=== PATIENT | female | born 1960 | race Caucasian/White ===

== ENCOUNTER 2016-08-12 06:17 | Emergency (ER) | payer BC ==
--- NOTE | 2016-08-12 08:23 | EDM.PDOC ---
ED HPI GENERAL MEDICAL PROBLEM - General Chief Complaint: Flank Pain Stated Complaint: PAIN ON RIGHT SIDE Time Seen by Provider: 08/12/16 08:02 - History of Present Illness INITIAL COMMENTS - FREE TEXT/NARRATIVE: HISTORY AND PHYSICAL: History of present illness: Patient is a 56-year-old white female history of chronic renal disease who presents with concern of bilateral flank pain right greater than left patient denies associated nausea vomiting fever chills or other concern she had no urinary symptoms in the form of dysuria frequency hesitancy or other she denies trauma Review of systems: As per history of present illness and below otherwise all systems reviewed and negative. Past medical history: As per history of present illness and as reviewed below otherwise noncontributory. Surgical history: As per history of present illness and as reviewed below otherwise noncontributory. Social history: No reported history of drug or alcohol abuse. Family history: As per history of present illness and as reviewed below otherwise noncontributory. Physical exam: HEENT: Atraumatic, normocephalic, pupils reactive, negative for conjunctival pallor or scleral icterus, mucous membranes moist, throat clear, neck supple, nontender, trachea midline. Lungs: Clear to auscultation, breath sounds equal bilaterally, chest nontender. Heart: S1S2, regular, negative for clicks, rubs, or JVD. Abdomen: Soft, nondistended, nontender. Negative for masses or hepatosplenomegaly. Right-sided costovertebral tenderness. Pelvis: Stable nontender. Genitourinary: Deferred. Rectal: Deferred. Extremities: Atraumatic, negative for cords or calf pain. Neurovascular unremarkable. Neuro: Awake, alert, oriented. Cranial nerves II through XII unremarkable. Cerebellum unremarkable. Motor and sensory unremarkable throughout. Exam nonfocal. Diagnostics: CBC CMP UA CT abdomen and pelvis chest x-ray right upper quadrant Therapeutics: Normal saline Toradol 30 mg IV Zofran 4 mg IV Impression: #1 flank pain #2 history of chronic renal disease Definitive disposition and diagnosis as appropriate pending reevaluation and review of above. flank area Pain Score (Numeric/FACES): 3 - Related Data Allergies Allergy/AdvReac Type Severity Reaction Status Date / Time iodine Allergy unknown Verified 08/12/16 06:56 morphine Allergy Redness Verified 08/12/16 06:56 nitrofurantoin Allergy unknown Verified 08/12/16 06:56 [From Macrobid] Home Meds: Home Meds Amoxicillin/Potassium Clav [Amox-Clav 875-125 mg Tablet] 1 tab PO BID 08/12/16 [ History] Cholecalciferol (Vitamin D3) [D3-2000] 1,000 units PO DAILY 08/12/16 [History] Folic Acid 800 mcg PO DAILY 08/12/16 [History] Lisinopril 1 tab PO DAILY 08/12/16 [History] Sodium Bicarbonate 1 tab PO BID 08/12/16 [History] amLODIPine [Norvasc] 2.5 mg PO DAILY 08/12/16 [History] Past Medical History HEENT History: Reports: Other (See Below) 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 , Other (See Below) Other OB/BYN History: right ovary removal Musculoskeletal History: Reports: None Neurological History: Reports: None Psychiatric History: Reports: None Endocrine/Metabolic History: Reports: None Hematologic History: Reports: None Immunologic History: Reports: None Oncologic (Cancer) History: Reports: None Dermatologic History: Reports: None - Infectious Disease History Infectious Disease History: Reports: None - Past Surgical History HEENT Surgical History: Reports: Eye Surgery, Other (See Below) GI Surgical History: Reports: None Female Surgical History: Reports: Ureteral Stent Other Female Surgeries/Procedures: bilateral ureteral implantation Social & Family History - Family History Family Medical History: Noncontributory - Tobacco Use Smoking Status *Q: Never Smoker - Caffeine Use Caffeine Use: Reports: Coffee - Recreational Drug Use Recreational Drug Use: No ED ROS GENERAL - Review of Systems Review Of Systems: ROS reveals no pertinent complaints other than HPI. ED EXAM, GENERAL - Physical Exam Exam: See Below (See dictation) Course - Vital Signs Last Recorded V/S: Last Vital Signs Temp 36.5 C 08/12/16 07:01 Pulse 87 08/12/16 10:01 Resp 18 08/12/16 10:01 BP 168/79 H 08/12/16 10:01 Pulse Ox 96 06/03/17 10:01 - Orders/Labs/Meds Orders: Active Orders 24 hr Category Date Time Status Abdomen Ltd [US] Stat Exams 08/12/16 08:08 Taken Abdomen Pelvis wo Cont [CT] Stat Exams 08/12/16 06:39 Taken Chest 2V [CR] Stat Exams 08/12/16 08:08 Taken CULTURE URINE [RM] Stat Lab 08/12/16 06:30 Received Labs: Laboratory Tests 08/12/16 08/12/16 08/12/16 Range/Units 06:30 06:40 06:40 WBC 11.85 H (4.0-11.0) K/uL RBC 4.41 (4.30-5.90) M/uL Hgb 12.5 (12.0-16.0) g/dL Hct 39.5 (36.0-46.0) % MCV 89.6 (80.0-98.0) fL MCH 28.3 (27.0-32.0) pg MCHC 31.6 (31.0-37.0) g/dL RDW Std Deviation 43.3 (28.0-62.0) fl RDW Coeff of Maite 13 (11.0-15.0) % Plt Count 239 (150-400) K/uL MPV 10.10 (7.40-12.00) fL Add Manual Diff YES Neutrophils % (Manual) 67 (48.0-80.0) % Band Neutrophils % 7 % Lymphocytes % (Manual) 18 (16.0-40.0) % Monocytes % (Manual) 4 (0.0-15.0) % Eosinophils % (Manual) 3 (0.0-7.0) % Basophils % (Manual) 1 (0.0-1.5) % Nucleated RBC % 0.0 /100WBC Absolute Seg Neuts 7.9 Band Neutrophils # 0.8 Lymphocytes # (Manual) 2.1 Monocytes # (Manual) 0.5 Eosinophils # (Manual) 0.4 Basophils # (Manual) 0 Nucleated RBCs # 0 K/uL Sodium 142 (136-146) mmol/L Potassium 4.8 (3.5-5.1) mmol/L Chloride 111 H (98-110) mmol/L Carbon Dioxide 20 L (21-31) mmol/L BUN 27 H (6.0-23.0) mg/dL Creatinine 1.9 H (0.6-1.5) mg/dL Est Cr Clr Drug Dosing 29.40 mL/min Estimated GFR (MDRD) 27.2 ml/min Glucose 104 (60-110) mg/dL Calcium 9.1 (8.8-10.8) mg/dL Total Bilirubin 0.3 (0.1-1.5) mg/dL AST 38 (5-40) IU/L ALT 151 H (8-54) IU/L Alkaline Phosphatase 264 H (40-150) Total Protein 7.7 (6.0-8.0) g/dL Albumin 3.9 (3.5-5.0) g/dL Globulin 3.8 H (2.0-3.5) g/dL Albumin/Globulin Ratio 1.0 L (1.3-2.8) Urine Color YELLOW Urine Appearance CLEAR Urine pH 5.5 (5.0-8.0) Ur Specific [place] 1.010 (1.001-1.035) Urine Protein 100 (NEGATIVE) mg/dL Urine Glucose (UA) NEGATIVE (NEGATIVE) mg/dL Urine Ketones NEGATIVE (NEGATIVE) mg/dL Urine Occult Blood NEGATIVE (NEGATIVE) Urine Nitrite NEGATIVE (NEGATIVE) Urine Bilirubin NEGATIVE (NEGATIVE) Urine Urobilinogen 0.2 (<2.0) EU/dL Ur Leukocyte Esterase NEGATIVE (NEGATIVE) Urine RBC 0-2 (0-2/HPF) Urine WBC 0-1 (0-5/HPF) Ur Epithelial Cells OCCASIONAL (NONE-FEW) Urine Bacteria RARE (NEGATIVE) Departure - Departure Time of Disposition: 11:00 Disposition: Home, Self-Care 01 Condition: good Clinical Impression: Flank pain - Discharge Information Forms: ED Department Discharge Additional Instructions: The following information is given to patients seen in the emergency department who are being discharged to home. This information is to outline your options for follow-up care. We provide all patients seen in our emergency department with a follow-up referral. The need for follow-up, as well as the timing and circumstances, are variable depending upon the specifics of your emergency department visit. If you don't have a primary care physician on staff, we will provide you with a referral. We always advise you to contact your personal physician following an emergency department visit to inform them of the circumstance of the visit and for follow-up with them and/or the need for any referrals to a consulting specialist. The emergency department will also refer you to a specialist when appropriate. This referral assures that you have the opportunity for followup care with a specialist. All of these measure are taken in an effort to provide you with optimal care, which includes your followup. Under all circumstances we always encourage you to contact your private physician who remains a resource for coordinating your care. When calling for followup care, please make the office aware that this follow-up is from your recent emergency room visit. If for any reason you are refused follow-up, please contact the [facility] emergency department at and asked to speak to the emergency department charge nurse. Followup primary medical doctor/urology as discussed Tylenol as directed return as needed as discussed - My Orders Last 24 Hours: My Active Orders 08/12/16 06:30 CULTURE URINE [RM] Stat 08/12/16 06:39 Abdomen Pelvis wo Cont [CT] Stat 08/12/16 08:08 Abdomen Ltd [US] Stat Chest 2V [CR] Stat - Assessment/Plan Last 24 Hours: My Active Orders 08/12/16 06:30 CULTURE URINE [RM] Stat 08/12/16 06:39 Abdomen Pelvis wo Cont [CT] Stat 08/12/16 08:08 Abdomen Ltd [US] Stat Chest 2V [CR] Stat
[2016-08-12 18:20] VITALS: BP 161/85
--- NOTE | 2016-08-14 13:29 | CT ---
EXAM DATE: 08/12/16 PATIENT'S AGE: 56 Patient: MELISSA GUTIERREZ Facility: [place], [place] Site . Site : 1960 Study: CT Abdomen/Pelvis WO CONT [id number]/3/2017 7:04:03 AM Ordering Physician: Doctor Regan Final Report: INDICATION: Right-sided flank pain. TECHNIQUE: CT abdomen and pelvis without contrast. COMPARISON: None FINDINGS: Lower chest: Reticulonodular opacities and subtle architectural distortion right middle lobe. Trace dependent pleural effusion on the right. Liver: Unremarkable. Spleen: Unremarkable. Pancreas: Unremarkable. Gallbladder and bile ducts: Unremarkable. Kidneys: Abnormal left kidney. Cysts in the parenchyma superiorly with mild hydronephrosis. Inferiorly high attenuation along the medullary pyramid level. No discrete stone however. Diffuse moderate focal volume loss, particularly superiorly. Mild ureteral dilatation with urothelial thickening. No filling defect. Lobular volume loss through the right kidney is less pronounced than on the left but abnormal. Small cyst in the medial upper pole. Parenchymal calcifications posterior upper pole. No hydronephrosis or hydroureter. Distended thick walled trabeculated appearing urinary bladder. Thin serpiginous lines of high attenuation along the periphery of the bladder posterosuperiorly. Adrenal glands: Unremarkable. GI tract: Unremarkable. Appendix is normal. Vascular structures: Unremarkable. Lymph nodes: Unremarkable. Miscellaneous: Unremarkable. No free air or significant free fluid. Pelvic Organs: Unremarkable. Bones: Unremarkable for age. IMPRESSION: Abnormal kidneys in urinary bladder. Likely chronic reflux changes in left greater than right kidney with chronic changes as described. No definitive acute finding in the kidneys, ureters or bladder. Probable prior bladder augmentation. Thick walled trabeculated urinary bladder suggests chronic neurogenic sequelae. Reticulonodular opacities right middle lobe may be age-indeterminate infectious/ inflammatory etiology, particularly mycoplasma avium intracellulare infection. Please note that all CT scans at this facility use dose modulation, iterative reconstruction, and/or weight-based dosing when appropriate to reduce radiation dose to as low as reasonably achievable. Dictated by Ángel Sewell MD @ Aug 12 2016 7:50AM (Electronic Signature) Report Signed by Proxy. [facility]
--- NOTE | 2016-08-14 13:33 | CR ---
EXAM DATE: 08/12/16 PATIENT'S AGE: 56 Patient: MELISSA GUTIERREZ Facility: [place], [place] Site . Site : 1960 Study: XRay Chest [id number]/3/[id number] 8:26:32 AM Ordering Physician: Nellie West Final Report: INDICATION: RT side pain 2 View Chest. Findings: The lungs are clear. Pulmonary vascularity, mediastinum and cardiac silhouette are within normal limits. No effusions and no pneumothorax. Osseous structures appear unremarkable. Impression: No evidence of acute cardiopulmonary disease. Dictated by: Ángel Sewell MD @ 08/12/2016 08:47:12 (Electronic Signature) Report Signed by Proxy. EV
--- NOTE | 2016-08-14 13:43 | US ---
EXAM DATE: 08/12/16 PATIENT'S AGE: 56 Patient: MELISSA GUTIERREZ Facility: [place], [place] Site . Site : 1960 Study: US Abdomen [id number]/3/2017 10:02:53 AM Ordering Physician: Nellie West Final Report: Indication: Right-sided pain. Findings: Visualized pancreas is normal. No ascites. Small echogenic polyp in the free wall of the gallbladder measures roughly 3 mm. No wall thickening. No sonographic Leslie`s sign. Common bile duct 3 mm at the edgar hepatis. Echogenic liver parenchyma diffusely. No mass or cyst. No ascites. Right kidney is echogenic and small. Normal blood flow to all segments on color Doppler interrogation. The left kidney is significantly cystic with prominent cortical volume loss and multiple echogenic septations. Impression: 1. Small polyp in the gallbladder. No acute cholecystitis. 2. Abnormal kidneys appear chronic. Dictated by Ángel Sewell MD @ Aug 12 2016 10:14AM (Electronic Signature) Report Signed by Proxy. EV
== END 2016-08-12 11:10 | disposition home or self-care (01) ==
LOC: MW.ED 06:17
DX: R10.9 Unspecified abdominal pain (principal); I12.9 Hypertensive chronic kidney disease with stage 1 through stage 4 chronic kidney disease, or unspecified chronic kidney disease; N18.9 Chronic kidney disease, unspecified; Z98.890 Other specified postprocedural states; Z79.899 Other long term (current) drug therapy; Z88.5 Allergy status to narcotic agent; Z88.8 Allergy status to other drugs, medicaments and biological substances
CPT/HCPCS: 71020; 71020-26; 74176; 74176-26; 76705; 76705-26; 80053; 81001; 85025; 87086; 99284; 99284-25

== ENCOUNTER 2016-12-13 08:42 | Day surgery (SDC) | payer BC ==
[~2016-12-13 08:42] MED LIST: Lactated Ringers 1,000 ML IV SCH; Midazolam 1 MG/ML 2 ML SDV ONE; Propofol 200 MG/20 ML SDV ONE; Sodium Chloride 0.9% 10 ML Syringe FLUSH PRN; Sodium Chloride 0.9% 2.5 ML Syringe FLUSH PRN; fentaNYL 100 MCG/2 ML SDV ONE
--- NOTE | 2016-12-13 10:35 | PCM.PREANE ---
Preanesthetic Assessment - Anesthesia/Transfusion/Family Hx Anesthesia History: Prior Anesthesia Without Reaction Family History of Anesthesia Reaction: No Transfusion History: No Prior Transfusion(s) Intubation History: Unknown - Review of Systems General: No Symptoms Pulmonary: No Symptoms Cardiovascular: No Symptoms Gastrointestinal: No Symptoms, Other (h/o tubular adenoma of colon ') Neurological: No Symptoms Other: Reports: None - Physical Assessment NPO Status Date: 12/12/16 NPO Status Time: 21:00 O2 Sat by Pulse Oximetry: 94 Respiratory Rate: 16 Vital Signs: Last Vital Signs Temp 2.6 C L 12/13/16 09:43 Pulse 80 12/13/16 09:43 Resp 16 12/13/16 09:43 BP 147/86 H 12/13/16 09:43 Pulse Ox 94 L 12/13/16 09:43 Height: 1.65 m Weight: 65.771 kg ASA Class: 2 Mental Status: Alert & Oriented x3 Airway Class: Mallampati = 2 Dentition: Reports: Normal Dentition (implants x2 left lower), Bridge (fixed right lower (back)) Thyro-Mental Finger Breadths: 3 Mouth Opening Finger Breadths: 3 ROM/Head Extension: Full Lungs: Clear to Auscultation, Normal Respiratory Effort Cardiovascular: Regular Rate, Regular Rhythm - Allergies Allergies/Adverse Reactions: Allergies Allergy/AdvReac Type Severity Reaction Status Date / Time iodine Allergy Rash Verified 12/07/16 15:30 morphine Allergy Redness Verified 08/12/16 06:56 nitrofurantoin Allergy Rash Verified 12/07/16 15:30 [From Macrobid] - Blood Blood Available: No Product(s) Available: None - Anesthesia Plan Pre-Op Medication Ordered: None - Acknowledgements Anesthesia Type Planned: MAC Pt an Appropriate Candidate for the Planned Anesthesia: Yes Alternatives and Risks of Anesthesia Discussed w Pt/Guardian: Yes Pt/Guardian Understands and Agrees with Anesthesia Plan: Yes PreAnesthesia Questionnaire HEENT History: Reports: Other (See Below) Other HEENT History: Born with double vision, wears glasses Cardiovascular History: Reports: Hypertension, Other (See Below) (h/o palpitations (sinus tachicardia 150/min on EKG only)/) Respiratory History: Reports: Other (See Below) (right middle lobe infiltrate on CT) Gastrointestinal History: Reports: Colon Polyp ('11) Genitourinary History: Reports: UTI, Recurrent, Other (See Below) Other Genitourinary History: stated having Chronic Kidney Disease, 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) 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 , Other (See Below) Other OB/BYN History: right ovary removal Musculoskeletal History: Reports: None Neurological History: Reports: None Psychiatric History: Reports: None Endocrine/Metabolic History: Reports: Other (See Below) (elevated parathyroid hormone, hypomagnesemia, hyperuricemia) Hematologic History: Reports: None Immunologic History: Reports: None Oncologic (Cancer) History: Reports: None Dermatologic History: Reports: None - Infectious Disease History Infectious Disease History: Reports: None - Past Surgical History Head Surgeries/Procedures: Reports: None HEENT Surgical History: Reports: Eye Surgery, Other (See Below) GI Surgical History: Reports: Colonoscopy Female Surgical History: Reports: Endometrial Ablation, Oophorectomy, Ureteral Stent Other Female Surgeries/Procedures: bilateral ureteral implantation, cysto with double J stent placement x2, hysteroscopy with endometrial ablation Musculoskeletal Surgical History: Reports: Other (See Below) Other Musculoskeletal Surgeries/Procedures:: exc of neuroma left foot - SUBSTANCE USE Smoking Status *Q: Never Smoker Recreational Drug Use History: No - HOME MEDS Home Medications: Home Meds Cholecalciferol (Vitamin D3) [D3-2000] 1,000 units PO DAILY 08/12/16 [History] Folic Acid 800 mcg PO DAILY 08/12/16 [History] Lisinopril 20 mg PO DAILY 08/12/16 [History] Sodium Bicarbonate 1 tab PO QID 08/12/16 [History] amLODIPine [Norvasc] 1 - 2 tab PO DAILY 08/12/16 [History] Allopurinol [Zyloprim] 100 mg PO DAILY 12/07/16 [History] Wheat Dextrin [Benefiber] 2 tsp PO ASDIRECTED 12/07/16 [History] - CURRENT (IN HOUSE) MEDS Current Meds: Current Medications Lactated Ringer's (Ringers, Lactated) 1,000 mls @ 125 mls/hr IV ASDIRECTED CRISTHIAN Last Admin: 12/13/16 09:17 Dose: 125 mls/hr Sodium Chloride (Saline Flush) 10 ml FLUSH ASDIRECTED PRN PRN Reason: Keep Vein Open Sodium Chloride (Saline Flush) 2.5 ml FLUSH ASDIRECTED PRN PRN Reason: Keep Vein Open Discontinued Medications Fentanyl (Sublimaze) Confirm Administered Dose 100 mcg .ROUTE .STK-MED ONE Stop: 12/13/16 07:07 Lidocaine HCl (Xylocaine-Mpf 1%) Confirm Administered Dose 5 ml .ROUTE .STK-MED ONE Stop: 12/13/16 07:07 Midazolam HCl (Versed 1 Mg/Ml) Confirm Administered Dose 2 mg .ROUTE .STK-MED ONE Stop: 12/13/16 07:07 Propofol (Diprivan 20 Ml) Confirm Administered Dose 200 mg .ROUTE .STK-MED ONE Stop: 12/13/16 07:07
[2016-12-13] MEDS ORDERED: Propofol 200 MG/20 ML SDV ONE (11:34)
--- NOTE | 2016-12-13 11:47 | PCM.OPNOTE ---
- General Post-Op/Procedure Note Date of Surgery/Procedure: 12/13/16 Operative Procedure(s): Colonoscopy Findings: Normal colon Pre Op Diagnosis: History of polyps Post-Op Diagnosis: Normal colon Anesthesia Technique: MAC Primary Surgeon: Mera Hayes Condition: Good
[2016-12-13 12:37] VITALS: BP 117/68
--- NOTE | 2016-12-14 00:23 | OR ---
SURGEON: TERI HOUSER MD DATE OF PROCEDURE: 12/13/2016 PREOPERATIVE DIAGNOSIS: History of colon polyps. POSTOPERATIVE DIAGNOSIS: Normal colonoscopy. PROCEDURE PERFORMED: Screening colonoscopy. INSTRUMENT USED: Olympus colonoscope. ANESTHESIA: MAC. EXTENT OF THE EXAM: To the cecum. PREPARATION: Good. LIMITATIONS: None. INDICATIONS FOR EXAMINATION: The patient is a 56-year-old female, who previously was diagnosed with colon polyps. She is due for a repeat scope. We discussed the procedure as well as expected perioperative course. We discussed the risks including bleeding, infection, or damage to surrounding structures including perforation. The patient verbalized understanding and wishes to proceed. PROCEDURE IN DETAIL: The patient was brought into the endoscopy suite and placed in a left lateral decubitus position. A time-out was completed verifying the patient's name, age, date of , allergies, and procedure to be performed. Monitored anesthesia care was induced and continuous oxygen was provided via nasal cannula throughout the procedure. After adequate sedation was achieved, a digital rectal exam was performed. This examination was within normal limits. A well lubricated colonoscope was then inserted in the rectum and advanced under direct visualization at the level of the cecum. Cecum was identified by both visual and anatomic landmarks. A photograph was taken to the cecal cap as well as with the scope retroflexed within the cecum. The scope was then fully withdrawn while examining the color, texture, anatomy, and integrity mucosa from the cecum to the anal canal. The findings were consistent with normal colonic mucosa. The scope was then brought into the rectum and retroflexed to allow visualization of the anal canal opening. This appeared normal and a photograph was taken. The scope was then straightened out and removed from the patient. The cecum to anus time was 6 minutes. The patient tolerated the procedure well and was taken to PACU in stable condition. ENDOSCOPIC DIAGNOSIS: Normal colonoscopy. RECOMMENDATIONS: Follow up in clinic in 5 years. KAMALJIT CERNA /[id number]
== END 2016-12-13 12:55 | disposition home or self-care (01) ==
LOC: MW.SDS 08:42
PROVIDERS: ATTEND Surgery
DX: Z12.11 Encounter for screening for malignant neoplasm of colon (principal); I13.10 Hypertensive heart and chronic kidney disease without heart failure, with stage 1 through stage 4 chronic kidney disease, or unspecified chronic kidney disease; N18.9 Chronic kidney disease, unspecified; E79.0 Hyperuricemia without signs of inflammatory arthritis and tophaceous disease; M19.031 Primary osteoarthritis, right wrist; E55.9 Vitamin D deficiency, unspecified; N26.1 Atrophy of kidney (terminal); Z79.899 Other long term (current) drug therapy; Z88.5 Allergy status to narcotic agent; Z88.1 Allergy status to other antibiotic agents; Z91.041 Radiographic dye allergy status; Z90.721 Acquired absence of ovaries, unilateral; Z87.440 Personal history of urinary (tract) infections; Z86.010 Personal history of colon polyps; Z98.890 Other specified postprocedural states
CPT/HCPCS: 45378; J2250; J7120; J2704; J3010

== ENCOUNTER 2018-10-21 23:02 | Emergency (ER) | payer BC ==
--- NOTE | 2018-10-21 23:07 | EDM.PDOC ---
ED HPI GENERAL MEDICAL PROBLEM - General Chief Complaint: Cardiovascular Problem Stated Complaint: HBP Time Seen by Provider: 10/21/18 23:04 - History of Present Illness INITIAL COMMENTS - FREE TEXT/NARRATIVE: HISTORY AND PHYSICAL: History of present illness: The patient is a 58-year-old female with a history of hypertension and chronic kidney disease for which her left kidney only has 10% in her right kidney is slightly weakened, both of which she follows with Dr. Lundberg and Dr. Couch, and presents tonight with onset of feeling like her heart is beating very strongly while she was watching a movie at about 8:30 PM. The patient says that this is happened in the past and she did a Holter monitor with Dr. Lundberg and it was noted that this was associated with her blood pressure when it became more elevated. She is currently on lisinopril 20 a day and Norvasc which she takes 2.5 mg daily and if her blood pressure is running higher than 140 systolic she takes the second dose of 2.5 mg. She's never had any coronary artery disease and has no chest pain with these events she does says that it feels like her heart is beating very hard. She has no associated shortness of breath lightheadedness dizziness nausea or abdominal pain. She is making normal urine output. According to her report the Holter monitor in the past only revealed sinus tachycardia and episodes and Dr. Lundberg repeated that to elevated blood pressure and stressors. She has no history of thyroid disease and she's been eating and drinking normally and has not had any fevers chills upper respiratory symptoms vomiting or diarrhea. Currently in the ED she says she just feels anxious and she said that she thinks that may have contributed to the persistence of her symptoms. She is not having any chest pain or shortness of breath nor any palpitations at this time. She has no leg pain or swelling. At home when she took her blood pressure it was 170/100 and that is on the high side for her. She says that she did not take the second 2.5 mg of Norvasc that she is able to take prior to coming here. She has some concern about progression of her kidney disease as she was told by her providers that as that worsened her blood pressure may be more difficult to control. Currently does not have a headache or visual changes Review of systems: As per history of present illness and below otherwise all systems reviewed and negative. Past medical history: As per history of present illness and as reviewed below otherwise noncontributory. Surgical history: As per history of present illness and as reviewed below otherwise noncontributory. Social history: No reported history of drug or alcohol abuse. Family history: As per history of present illness and as reviewed below otherwise noncontributory. Physical exam: General: Well-developed well-nourished female who is nontoxic and vital signs are noted by me. On my evaluation her blood pressure was 190/98 HEENT: Atraumatic, normocephalic, pupils reactive, negative for conjunctival pallor or scleral icterus, mucous membranes moist, throat clear, neck supple, nontender, trachea midline. Thyromegaly Lungs: Clear to auscultation, breath sounds equal bilaterally, chest nontender. Heart: S1S2, regular rate and rhythm no overt murmurs, negative for clicks, rubs , or JVD. Abdomen: Soft, nondistended, nontender. Negative for masses or hepatosplenomegaly. Negative for costovertebral tenderness. Pelvis: Stable nontender. Genitourinary: Deferred. Rectal: Deferred. Extremities: Atraumatic, negative for cords or calf pain. Neurovascular unremarkable. No pedal edema or leg asymmetry Neuro: Awake, alert, oriented. Cranial nerves II through XII unremarkable. Cerebellum unremarkable. Motor and sensory unremarkable throughout. Exam nonfocal. Diagnostics: EKG CBC CMP troponin TSH UA with reflex chest x-ray Therapeutics: Repeat blood pressure was 170/96 and the patient is not having palpitations or any abnormal sensations. We discussed at length her testing results and she will take the second 2.5 mg of Norvasc when she gets home and she was told by Dr. Lundberg to do when her blood pressure was elevated. She will call the clinic first thing in the morning and have a dialogue with him about medication adjustment and further testing. I have also advised her to start a blood pressure journal taking her blood pressure twice a day at the same time everyday and documenting what she is feeling. She is aware of reasons to return to the ED. I told her that I could give her medication here but I did not want to introduce anything new due to the fragile state of her kidney function and she has Norvasc at home that she can take and did not so I would rather start with this. She also tells me that in the past she had been given a beta max by Dr. Lundberg that she has taken in the past but she did not need through the winter and she will discuss with him whether or not she should restart that. Impression: Hypertension with palpitations stable Definitive disposition and diagnosis as appropriate pending reevaluation and review of above. - Related Data Allergies Allergy/AdvReac Type Severity Reaction Status Date / Time iodine Allergy Rash Verified 10/21/18 23:10 morphine Allergy Redness Verified 10/21/18 23:10 nitrofurantoin Allergy Rash Verified 10/21/18 23:10 [From Macrobid] Home Meds: Home Meds Cholecalciferol (Vitamin D3) [D3-2000] 1,000 units PO BID 08/12/16 [History] Folic Acid 800 mcg PO DAILY 08/12/16 [History] Lisinopril 10 mg PO BID 08/12/16 [History] Sodium Bicarbonate 1,200 mg PO BID 08/12/16 [History] amLODIPine [Norvasc] 2.5 tab PO DAILY 08/12/16 [History] Allopurinol [Zyloprim] 100 mg PO DAILY 12/07/16 [History] Wheat Dextrin [Benefiber] 2 tsp PO DAILY 12/07/16 [History] Past Medical History HEENT History: Reports: Other (See Below) Other HEENT History: Born with double vision, wears glasses Cardiovascular History: Reports: Hypertension, Other (See Below) (h/o palpitations (sinus tachicardia 150/min on EKG only)/) Respiratory History: Reports: Other (See Below) (right middle lobe infiltrate on CT) Gastrointestinal History: Reports: Colon Polyp (') Genitourinary History: Reports: UTI, Recurrent, Other (See Below) Other Genitourinary History: stated having Chronic Kidney Disease, 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) [employer] History: Reports: Spontaneous , Other (See Below) Other [employer] History: right ovary removal Musculoskeletal History: Reports: None Neurological History: Reports: None Psychiatric History: Reports: None Endocrine/Metabolic History: Reports: Other (See Below) (elevated parathyroid hormone, hypomagnesemia, hyperuricemia) Hematologic History: Reports: None Immunologic History: Reports: None Oncologic (Cancer) History: Reports: None Dermatologic History: Reports: None - Infectious Disease History Infectious Disease History: Reports: None - Past Surgical History Head Surgeries/Procedures: Reports: None HEENT Surgical History: Reports: Eye Surgery, Other (See Below) GI Surgical History: Reports: Colonoscopy Female Surgical History: Reports: Endometrial Ablation, Oophorectomy, Ureteral Stent Other Female Surgeries/Procedures: bilateral ureteral implantation, cysto with double J stent placement x2, hysteroscopy with endometrial ablation Musculoskeletal Surgical History: Reports: Other (See Below) Other Musculoskeletal Surgeries/Procedures:: exc of neuroma left foot Social & Family History - Family History Family Medical History: Noncontributory - Caffeine Use Caffeine Use: Reports: Coffee ED ROS GENERAL - Review of Systems Review Of Systems: ROS reveals no pertinent complaints other than HPI. ED EXAM, GENERAL - Physical Exam Exam: See Below (See dictation) Course - Vital Signs Last Recorded V/S: Last Vital Signs Temp 36.4 C 10/21/18 23:49 Pulse 90 10/21/18 23:49 Resp 16 10/21/18 23:49 BP 170/96 H 10/21/18 23:49 Pulse Ox 97 10/21/18 23:49 - Orders/Labs/Meds Orders: Active Orders 24 hr Category Date Time Status Cardiac Monitoring [RC] . DIRECTED Care 10/21/18 23:20 Active EKG Documentation Completion [RC] STAT Care 10/21/18 23:20 Active Oxygen Therapy, ED [RC] ASDIRECTED Care 10/21/18 23:20 Active Pulse Oximetry [RC] ASDIRECTED Care 10/21/18 23:20 Active Chest 1V Frontal [CR] Stat Exams 10/21/18 23:22 Taken Sodium Chloride 0.9% [Saline Flush] Med 10/21/18 23:21 Active 10 ml FLUSH ASDIRECTED PRN Sodium Chloride 0.9% [Saline Flush] Med 10/21/18 23:21 Active 2.5 ml FLUSH ASDIRECTED PRN Saline Lock Insert [OM.PC] Stat Oth 10/21/18 23:20 Ordered Medication Orders Sodium Chloride (Saline Flush) 10 ml FLUSH ASDIRECTED PRN PRN Reason: Keep Vein Open Sodium Chloride (Saline Flush) 2.5 ml FLUSH ASDIRECTED PRN PRN Reason: Keep Vein Open Labs: Laboratory Tests 10/21/18 10/21/18 10/21/18 Range/Units 23:32 23:32 23:55 WBC 7.36 (4.0-11.0) K/uL RBC 4.01 L (4.30-5.90) M/uL Hgb 11.8 L (12.0-16.0) g/dL Hct 36.7 (36.0-46.0) % MCV 91.5 (80.0-98.0) fL MCH 29.4 (27.0-32.0) pg MCHC 32.2 (31.0-37.0) g/dL RDW Std Deviation 46.4 (28.0-62.0) fl RDW Coeff of [place] 14 (11.0-15.0) % Plt Count 144 L (150-400) K/uL MPV 10.40 (7.40-12.00) fL Neut % (Auto) 49.5 (48.0-80.0) % Lymph % (Auto) 38.6 (16.0-40.0) % [place] % (Auto) 8.2 (0.0-15.0) % Eos % (Auto) 2.9 (0.0-7.0) % Baso % (Auto) 0.8 (0.0-1.5) % Neut # (Auto) 3.7 (1.4-5.7) K/uL Lymph # (Auto) 2.8 H (0.6-2.4) K/uL [place] # (Auto) 0.6 (0.0-0.8) K/uL Eos # (Auto) 0.2 (0.0-0.7) K/uL Baso # (Auto) 0.1 (0.0-0.1) K/uL Nucleated RBC % 0.0 /100WBC Nucleated RBCs # 0 K/uL Sodium 143 (136-145) mmol/L Potassium 4.1 (3.5-5.1) mmol/L Chloride 108 H (98-107) mmol/L Carbon Dioxide 25.1 (21.0-32.0) mmol/L BUN 32 H (7.0-18.0) mg/dL Creatinine 2.2 H (0.6-1.0) mg/dL Est Cr Clr Drug Dosing 24.77 mL/min Estimated GFR (MDRD) 22.8 ml/min Glucose 103 (74-106) mg/dL Calcium 8.6 (8.5-10.1) mg/dL Total Bilirubin 0.2 (0.2-1.0) mg/dL AST 17 (15-37) IU/L ALT 26 (14-63) IU/L Alkaline Phosphatase 113 (46-116) U/L Troponin I < 0.050 (0.000-0.056) ng/mL Total Protein 6.5 (6.4-8.2) g/dL Albumin 3.1 L (3.4-5.0) g/dL Globulin 3.4 (2.6-4.0) g/dL Albumin/Globulin Ratio 0.9 (0.9-1.6) TSH 3rd Generation 3.67 (0.36-3.74) uIU/mL Urine Color YELLOW Urine Appearance CLEAR Urine pH 7.0 (5.0-8.0) Ur Specific [place] 1.010 (1.001-1.035) Urine Protein 100 H (NEGATIVE) mg/dL Urine Glucose (UA) NEGATIVE (NEGATIVE) mg/dL Urine Ketones NEGATIVE (NEGATIVE) mg/dL Urine Occult Blood SMALL H (NEGATIVE) Urine Nitrite NEGATIVE (NEGATIVE) Urine Bilirubin NEGATIVE (NEGATIVE) Urine Urobilinogen 0.2 (<2.0) EU/dL Ur Leukocyte Esterase NEGATIVE (NEGATIVE) Urine RBC 1-4 (0-2/HPF) Urine WBC 0-1 (0-5/HPF) Ur Epithelial Cells RARE (NONE-FEW) Urine Bacteria FEW (NEGATIVE) Urine Mucus LIGHT (NONE-MOD) Meds: Medications Generic Name Dose Route Start Last Admin Trade Name Freq PRN Reason Stop Dose Admin Sodium Chloride 10 ml 10/21/18 23:21 Saline Flush FLUSH ASDIRECTED PRN Keep Vein Open Sodium Chloride 2.5 ml 10/21/18 23:21 Saline Flush FLUSH ASDIRECTED PRN Keep Vein Open Departure - Departure Time of Disposition: 00:27 Disposition: Home, Self-Care 01 Reason for Transfer *Q: Primary PCI Indicated Condition: Good Clinical Impression: Palpitations Hypertension Qualifiers: Hypertension type: unspecified Qualified Code(s): I10 - Essential (primary) hypertension Referrals: Olivier Lundberg MD [Primary Care Provider] - Forms: ED Department Discharge Additional Instructions: The following information is given to patients seen in the emergency department who are being discharged to home. This information is to outline your options for follow-up care. We provide all patients seen in our emergency department with a follow-up referral. The need for follow-up, as well as the timing and circumstances, are variable depending upon the specifics of your emergency department visit. If you don't have a primary care physician on staff, we will provide you with a referral. We always advise you to contact your personal physician following an emergency department visit to inform them of the circumstance of the visit and for follow-up with them and/or the need for any referrals to a consulting specialist. The emergency department will also refer you to a specialist when appropriate. This referral assures that you have the opportunity for followup care with a specialist. All of these measure are taken in an effort to provide you with optimal care, which includes your followup. Under all circumstances we always encourage you to contact your private physician who remains a resource for coordinating your care. When calling for followup care, please make the office aware that this follow-up is from your recent emergency room visit. If for any reason you are refused follow-up, please contact the [facility] emergency department at and ask to speak to the emergency department charge nurse. [facility] Primary care- Internal Medicine and Family [address] Lundberg tomorrow and discuss tonight evaluation and testing results for advice for further management of your blood pressure medication. Return to ER as needed and as discussed - My Orders Last 24 Hours: My Active Orders 10/21/18 23:20 Cardiac Monitoring [RC] . DIRECTED EKG Documentation Completion [RC] STAT Oxygen Therapy, ED [RC] ASDIRECTED Pulse Oximetry [RC] ASDIRECTED Saline Lock Insert [OM.PC] Stat 10/21/18 23:21 Sodium Chloride 0.9% [Saline Flush] 10 ml FLUSH ASDIRECTED PRN Sodium Chloride 0.9% [Saline Flush] 2.5 ml FLUSH ASDIRECTED PRN 10/21/18 23:22 Chest 1V Frontal [CR] Stat - Assessment/Plan Last 24 Hours: My Active Orders 10/21/18 23:20 Cardiac Monitoring [RC] . DIRECTED EKG Documentation Completion [RC] STAT Oxygen Therapy, ED [RC] ASDIRECTED Pulse Oximetry [RC] ASDIRECTED Saline Lock Insert [OM.PC] Stat 10/21/18 23:21 Sodium Chloride 0.9% [Saline Flush] 10 ml FLUSH ASDIRECTED PRN Sodium Chloride 0.9% [Saline Flush] 2.5 ml FLUSH ASDIRECTED PRN 10/21/18 23:22 Chest 1V Frontal [CR] Stat
[2018-10-21] MEDS ORDERED: Sodium Chloride 0.9% 10 ML Syringe FLUSH PRN (23:21)
[2018-10-21] MEDS ORDERED: Sodium Chloride 0.9% 2.5 ML Syringe FLUSH PRN (23:21)
[2018-10-22 00:08] LABS: BLOOD UREA NITROGEN,BUN 32 mg/dL (7.0-18.0); CARBON DIOXIDE,CO2 25.1 mmol/L (21.0-32.0); CHLORIDE,CL 108 mmol/L (98-107); GLUCOSE RANDOM 103 mg/dL (74-106); POTASSIUM,K 4.1 mmol/L (3.5-5.1); SODIUM,NA 143 mmol/L (136-145)
[2018-10-22 00:40] VITALS: BP 167/94; PULSE 77
--- NOTE | 2018-10-22 00:52 | CR ---
Indication: Pain. SOB Technique: Chest 1 view Comparison: 08/23/2016 Findings/Impression: Cardiovascular and mediastinum: Heart size and vasculature are normal in caliber and appearance. Mediastinum is within normal limits. Lungs and pleural space: Mild elevation of the right hemidiaphragm with apparent minimal right basilar subsegmental atelectasis or scarring. No consolidation or pleural effusions Bones and soft tissues: No significant findings. Dictated by Pj Wilkins MD @ 10/22/2018 12:48:14 AM Dictated by: Pj Wilkins MD @ 10/22/2018 00:51:01 (Electronically Signed)
== END 2018-10-22 00:42 | disposition home or self-care (01) ==
LOC: MW.ED 23:02
DX: R00.2 Palpitations (principal); I12.9 Hypertensive chronic kidney disease with stage 1 through stage 4 chronic kidney disease, or unspecified chronic kidney disease; N18.9 Chronic kidney disease, unspecified; Z79.899 Other long term (current) drug therapy; Z88.5 Allergy status to narcotic agent; Z88.8 Allergy status to other drugs, medicaments and biological substances
CPT/HCPCS: 36415; 71045; 71045-26; 80053; 81001; 84443; 84484; 85025; 93005; 99284; 99285-25

== ENCOUNTER 2018-12-20 13:16 | Emergency (ER) | payer BC ==
--- NOTE | 2018-12-20 13:36 | EDM.PDOC ---
ED HPI GENERAL MEDICAL PROBLEM - General Chief Complaint: Cardiovascular Problem Stated Complaint: HEART COMPLAINT Time Seen by Provider: 12/20/18 13:17 Source of Information: Reports: Patient History Limitations: Reports: No Limitations - History of Present Illness INITIAL COMMENTS - FREE TEXT/NARRATIVE: HISTORY AND PHYSICAL: History of present illness: Patient is a 58-year-old female who presents to the ED today with concern of palpitations. Patient states she has had palpitations in the past and is following with Dr. Lundberg who thought the palpitations were related to anxiety. Patient states that she had talked to Dr. Lundberg today who increased her Zoloft dose due to the palpitations. Patient states she decided to come to the ED when she was having the palpitations and someone told her she looked more "pale" and patient states she has a generalized unwell feeling when the palpitations occur. Patient states the palpitations come and go and lasts for a few seconds at a time. Patient states Dr. Lundberg did have patient with a holter monitor in the past which she states showed sinus tachycardia. He denies any chest pain during these events. Patient states she has a history of anxiety, chronic kidney disease due to frequent urinary tract infections, and hypertension. Patient denies fever, chills, chest pain, shortness of breath, or cough. Denies headache, neck stiff ness, change in vision, syncope, or near syncope. Denies nausea, vomiting, abdominal pain, diarrhea, constipation, or dysuria. Has not noted any blood in urine or stool. Patient has been eating and drinking appropriately. Review of systems: As per history of present illness and below otherwise all systems reviewed and negative. Past medical history: As per history of present illness and as reviewed below otherwise noncontributory. Surgical history: As per history of present illness and as reviewed below otherwise noncontributory. Social history: See social history for further information Family history: As per history of present illness and as reviewed below otherwise noncontributory. Physical exam: General: Patient is alert, oriented, and in no acute distress. Patient laying comfortably on exam table and mildly anxious appearing. HEENT: Atraumatic, normocephalic, pupils equal and reactive bilaterally, negative for conjunctival pallor or scleral icterus, mucous membranes moist, TMs normal bilaterally, throat clear, neck supple, nontender, trachea midline. No drooling or trismus noted. No meningeal signs. No hot potato voice noted. Lungs: Clear to auscultation, breath sounds equal bilaterally, chest nontender. Heart: S1S2, regular rate and rhythm without overt murmur Abdomen: Soft, nondistended, nontender. Negative for masses or hepatosplenomegaly. Negative for costovertebral tenderness. Pelvis: Stable nontender. Genitourinary: Deferred. Rectal: Deferred. Skin: Intact, warm, dry. No lesions or rashes noted. Extremities: Atraumatic, negative for cords or calf pain. Neurovascular unremarkable. Neuro: Awake, alert, oriented. Cranial nerves II through XII unremarkable. Cerebellum unremarkable. Motor and sensory unremarkable throughout. Exam nonfocal. Notes: Patient denies having any symptoms while in the ED today. Admission for observation was offered to patient but she declines at this time. She does have an appointment on Sunday with Dr. Lundberg. Discussed keeping this appointment and the importance for follow-up with her primary care. Voices understanding and is agreeable to plan of care. Denies any further questions or concerns at this time. Diagnostics: EKG, CBC, CMP, UA, chest x-ray, troponin Therapeutics: Saline lock Prescription: None Impression: H/O palpitations Anxiety Plan: 1. You can alternate ibuprofen and Tylenol as directed for pain and discomfort. 2. Follow-up with your primary care provider as scheduled and as discussed. Return to the ED as needed and as discussed. Definitive disposition and diagnosis as appropriate pending reevaluation and review of above. - Related Data Allergies Allergy/AdvReac Type Severity Reaction Status Date / Time iodine Allergy Rash Verified 12/20/18 13:22 morphine Allergy Redness Verified 12/20/18 13:22 nitrofurantoin Allergy Rash Verified 12/20/18 13:22 [From Macrobid] Home Meds: Home Meds Cholecalciferol (Vitamin D3) [D3-2000] 1,000 units PO BID 08/12/16 [History] Folic Acid 800 mcg PO DAILY 08/12/16 [History] Lisinopril 10 mg PO BID 08/12/16 [History] Sodium Bicarbonate 650 mg PO BID 08/12/16 [History] amLODIPine [Norvasc] 2.5 tab PO BID 08/12/16 [History] Allopurinol [Zyloprim] 100 mg PO DAILY 12/07/16 [History] Wheat Dextrin [Benefiber] 2 tsp PO DAILY 12/07/16 [History] Sertraline [Zoloft] 50 mg PO DAILY 12/20/18 [History] Past Medical History HEENT History: Reports: Other (See Below) Other HEENT History: Born with double vision, wears glasses Cardiovascular History: Reports: Hypertension, Other (See Below) Other Cardiovascular History: sinus tachycardia Respiratory History: Reports: Other (See Below) Gastrointestinal History: Reports: Colon Polyp Genitourinary History: Reports: UTI, Recurrent, Other (See Below) Other Genitourinary History: stated having Chronic Kidney Disease, 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) [employer]SULTANT History: Reports: Spontaneous , Other (See Below) 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 [employer] 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 Musculoskeletal History: Reports: None Neurological History: Reports: None Psychiatric History: Reports: None Endocrine/Metabolic History: Reports: Other (See Below) Hematologic History: Reports: None Immunologic History: Reports: None Oncologic (Cancer) History: Reports: None Dermatologic History: Reports: None - Infectious Disease History Infectious Disease History: Reports: Chicken Pox, Measles, Mumps - Past Surgical History Head Surgeries/Procedures: Reports: None HEENT Surgical History: Reports: Eye Surgery, Other (See Below) GI Surgical History: Reports: Colonoscopy Female Surgical History: Reports: Endometrial Ablation, Oophorectomy, Ureteral Stent Other Female Surgeries/Procedures: bilateral ureteral implantation, cysto with double J stent placement x2, hysteroscopy with endometrial ablation Musculoskeletal Surgical History: Reports: Other (See Below) Other Musculoskeletal Surgeries/Procedures:: exc of neuroma left foot Social & Family History - Family History Family Medical History: Noncontributory - Caffeine Use Caffeine Use: Reports: None ED ROS GENERAL - Review of Systems Review Of Systems: ROS reveals no pertinent complaints other than HPI. ED EXAM, GENERAL - Physical Exam Exam: See Below (See dictation) Course - Vital Signs Last Recorded V/S: Last Vital Signs Temp 98.3 F 12/20/18 13:24 Pulse 99 12/20/18 13:24 Resp 18 12/20/18 13:24 BP 166/83 H 12/20/18 13:24 Pulse Ox 96 12/20/18 13:24 - Orders/Labs/Meds Orders: Active Orders 24 hr Category Date Time Status EKG Documentation Completion [RC] STAT Care 12/20/18 13:17 Active Labs: Laboratory Tests 12/20/18 12/20/18 12/20/18 Range/Units 13:25 13:25 13:25 WBC 8.50 (4.0-11.0) K/uL RBC 4.64 (4.30-5.90) M/uL Hgb 13.6 (12.0-16.0) g/dL Hct 42.5 (36.0-46.0) % MCV 91.6 (80.0-98.0) fL MCH 29.3 (27.0-32.0) pg MCHC 32.0 (31.0-37.0) g/dL RDW Std Deviation 45.2 (28.0-62.0) fl RDW Coeff of Maite 14 (11.0-15.0) % Plt Count 170 (150-400) K/uL MPV 10.70 (7.40-12.00) fL Neut % (Auto) 64.3 (48.0-80.0) % Lymph % (Auto) 26.0 (16.0-40.0) % [place] % (Auto) 7.8 (0.0-15.0) % Eos % (Auto) 1.2 (0.0-7.0) % Baso % (Auto) 0.7 (0.0-1.5) % Neut # (Auto) 5.5 (1.4-5.7) K/uL Lymph # (Auto) 2.2 (0.6-2.4) K/uL [place] # (Auto) 0.7 (0.0-0.8) K/uL Eos # (Auto) 0.1 (0.0-0.7) K/uL Baso # (Auto) 0.1 (0.0-0.1) K/uL Nucleated RBC % 0.0 /100WBC Nucleated RBCs # 0 K/uL INR 0.92 Sodium 142 (136-145) mmol/L Potassium 4.1 (3.5-5.1) mmol/L Chloride 105 (98-107) mmol/L Carbon Dioxide 23.5 (21.0-32.0) mmol/L BUN 27 H (7.0-18.0) mg/dL Creatinine 2.3 H (0.6-1.0) mg/dL Est Cr Clr Drug Dosing 23.70 mL/min Estimated GFR (MDRD) 21.7 ml/min Glucose 103 (74-106) mg/dL Calcium 9.2 (8.5-10.1) mg/dL Total Bilirubin 0.3 (0.2-1.0) mg/dL AST 20 (15-37) IU/L ALT 25 (14-63) IU/L Alkaline Phosphatase 124 H (46-116) U/L Troponin I < 0.050 (0.000-0.056) ng/mL Total Protein 8.1 (6.4-8.2) g/dL Albumin 3.8 (3.4-5.0) g/dL Globulin 4.3 H (2.6-4.0) g/dL Albumin/Globulin Ratio 0.9 (0.9-1.6) Urine Color Urine Appearance Urine pH (5.0-8.0) Ur Specific Carville (1.001-1.035) Urine Protein (NEGATIVE) mg/dL Urine Glucose (UA) (NEGATIVE) mg/dL Urine Ketones (NEGATIVE) mg/dL Urine Occult Blood (NEGATIVE) Urine Nitrite (NEGATIVE) Urine Bilirubin (NEGATIVE) Urine Urobilinogen (<2.0) EU/dL Ur Leukocyte Esterase (NEGATIVE) Urine RBC (0-2/HPF) Urine WBC (0-5/HPF) Ur Epithelial Cells (NONE-FEW) Urine Bacteria (NEGATIVE) Urine Mucus (NONE-MOD) 12/20/18 Range/Units 13:35 WBC (4.0-11.0) K/uL RBC (4.30-5.90) M/uL Hgb (12.0-16.0) g/dL Hct (36.0-46.0) % MCV (80.0-98.0) fL MCH (27.0-32.0) pg MCHC (31.0-37.0) g/dL RDW Std Deviation (28.0-62.0) fl RDW Coeff of Maite (11.0-15.0) % Plt Count (150-400) K/uL MPV (7.40-12.00) fL Neut % (Auto) (48.0-80.0) % Lymph % (Auto) (16.0-40.0) % [place] % (Auto) (0.0-15.0) % Eos % (Auto) (0.0-7.0) % Baso % (Auto) (0.0-1.5) % Neut # (Auto) (1.4-5.7) K/uL Lymph # (Auto) (0.6-2.4) K/uL [place] # (Auto) (0.0-0.8) K/uL Eos # (Auto) (0.0-0.7) K/uL Baso # (Auto) (0.0-0.1) K/uL Nucleated RBC % /100WBC Nucleated RBCs # K/uL INR Sodium (136-145) mmol/L Potassium (3.5-5.1) mmol/L Chloride (98-107) mmol/L Carbon Dioxide (21.0-32.0) mmol/L BUN (7.0-18.0) mg/dL Creatinine (0.6-1.0) mg/dL Est Cr Clr Drug Dosing mL/min Estimated GFR (MDRD) ml/min Glucose (74-106) mg/dL Calcium (8.5-10.1) mg/dL Total Bilirubin (0.2-1.0) mg/dL AST (15-37) IU/L ALT (14-63) IU/L Alkaline Phosphatase (46-116) U/L Troponin I (0.000-0.056) ng/mL Total Protein (6.4-8.2) g/dL Albumin (3.4-5.0) g/dL Globulin (2.6-4.0) g/dL Albumin/Globulin Ratio (0.9-1.6) Urine Color YELLOW Urine Appearance CLEAR Urine pH 7.0 (5.0-8.0) Ur Specific [place] 1.020 (1.001-1.035) Urine Protein 100 H (NEGATIVE) mg/dL Urine Glucose (UA) NEGATIVE (NEGATIVE) mg/dL Urine Ketones NEGATIVE (NEGATIVE) mg/dL Urine Occult Blood NEGATIVE (NEGATIVE) Urine Nitrite NEGATIVE (NEGATIVE) Urine Bilirubin NEGATIVE (NEGATIVE) Urine Urobilinogen 0.2 (<2.0) EU/dL Ur Leukocyte Esterase NEGATIVE (NEGATIVE) Urine RBC 0-1 (0-2/HPF) Urine WBC 0-2 (0-5/HPF) Ur Epithelial Cells OCCASIONAL (NONE-FEW) Urine Bacteria FEW (NEGATIVE) Urine Mucus LIGHT (NONE-MOD) Departure - Departure Time of Disposition: 15:41 Disposition: Home, Self-Care 01 Clinical Impression: History of palpitations, Anxiety Referrals: PCP,Unknown [Primary Care Provider] - Forms: ED Department Discharge Additional Instructions: The following information is given to patients seen in the emergency department who are being discharged to home. This information is to outline your options for follow-up care. We provide all patients seen in our emergency department with a follow-up referral. The need for follow-up, as well as the timing and circumstances, are variable depending upon the specifics of your emergency department visit. If you don't have a primary care physician on staff, we will provide you with a referral. We always advise you to contact your personal physician following an emergency department visit to inform them of the circumstance of the visit and for follow-up with them and/or the need for any referrals to a consulting specialist. The emergency department will also refer you to a specialist when appropriate. This referral assures that you have the opportunity for follow-up care with a specialist. All of these measure are taken in an effort to provide you with optimal care, which includes your follow-up. Under all circumstances we always encourage you to contact your private physician who remains a resource for coordinating your care. When calling for follow-up care, please make the office aware that this follow-up is from your recent emergency room visit. If for any reason you are refused follow-up, please contact the [facility] Emergency Department at and asked to speak to the emergency department charge nurse. [facility] [address] [place] [address] [id number] [address] [address] 1. You can alternate ibuprofen and Tylenol as directed for pain and discomfort. 2. Follow-up with your primary care provider as scheduled and as discussed. Return to the ED as needed and as discussed. - My Orders Last 24 Hours: My Active Orders 12/20/18 13:17 EKG Documentation Completion [RC] STAT - Assessment/Plan Last 24 Hours: My Active Orders 12/20/18 13:17 EKG Documentation Completion [RC] STAT
[2018-12-20 14:11] LABS: BLOOD UREA NITROGEN,BUN 27 mg/dL (7.0-18.0); CARBON DIOXIDE,CO2 23.5 mmol/L (21.0-32.0); CHLORIDE,CL 105 mmol/L (98-107); GLUCOSE RANDOM 103 mg/dL (74-106); POTASSIUM,K 4.1 mmol/L (3.5-5.1); SODIUM,NA 142 mmol/L (136-145)
--- NOTE | 2018-12-20 15:29 | CR ---
Chest: Frontal view of the chest was obtained. Comparison: Previous chest x-ray of 11/01/18. Stable density within the right upper chest most likely representing costochondral calcification. Lungs otherwise are clear. Heart size and mediastinum are normal. Bony structures are grossly intact. Impression: Nothing acute is seen on portable chest x-ray. Diagnostic code #2 MTDD
[2018-12-20 16:22] VITALS: BP 161/92; PULSE 88
== END 2018-12-20 15:51 | disposition home or self-care (01) ==
LOC: MW.ED 13:16
DX: F41.9 Anxiety disorder, unspecified (principal); I13.10 Hypertensive heart and chronic kidney disease without heart failure, with stage 1 through stage 4 chronic kidney disease, or unspecified chronic kidney disease; N18.9 Chronic kidney disease, unspecified; Z88.5 Allergy status to narcotic agent; Z88.1 Allergy status to other antibiotic agents; Z91.018 Allergy to other foods; Z79.899 Other long term (current) drug therapy
CPT/HCPCS: 36415; 71045; 71045-26; 80053; 81001; 84484; 85025; 85610; 93005; 99285-25

== ENCOUNTER 2021-09-15 08:45 | Day surgery (SDC) | payer BC ==
[~2021-09-15 08:45] MED LIST changes: +Lidocaine 2% 5 ML SDV ONE; -Midazolam 1 MG/ML 2 ML SDV ONE; +Sodium Chloride 0.9% 20 ML SDV IV PRN
[2021-09-15] MEDS ORDERED: Sodium Chloride 0.9% 1,000 ML IV SCH (09:30)
[2021-09-15 10:31] LABS: CARBON DIOXIDE,CO2 19.2 mmol/L (21.0-32.0); POTASSIUM,K 4.9 mmol/L (3.5-5.1)
[2021-09-15 11:19] VITALS: BP 104/57; PULSE 62
== END 2021-09-15 11:55 | disposition home or self-care (01) ==
LOC: MW.SDS 08:45
PROVIDERS: ATTEND Surgery
DX: Z12.11 Encounter for screening for malignant neoplasm of colon (principal); D12.5 Benign neoplasm of sigmoid colon; N18.9 Chronic kidney disease, unspecified; I12.9 Hypertensive chronic kidney disease with stage 1 through stage 4 chronic kidney disease, or unspecified chronic kidney disease; N25.81 Secondary hyperparathyroidism of renal origin; E55.9 Vitamin D deficiency, unspecified; Z88.8 Allergy status to other drugs, medicaments and biological substances; Z88.5 Allergy status to narcotic agent; Z79.899 Other long term (current) drug therapy; Z98.890 Other specified postprocedural states; Z76.82 Awaiting organ transplant status
CPT/HCPCS: 36415; 45380; 80048; 83735; 84100; J2704; J3010; J7030; 00811